=== PATIENT | male | born 1970 | race Caucasian/White ===

== ENCOUNTER 2016-03-05 11:43 | Emergency (ER) | payer OTHER ==
[~2016-03-05] VITALS: Ht 182.9 cm; Wt 129.3 kg
[2016-03-05 11:52] VITALS: BP 156/79; PULSE 90; RESP 16; TEMP 98; O2SAT 95
--- NOTE | 2016-03-05 11:56 | NUR ---
AMBULATED TO BED4
[2016-03-05] MEDS ORDERED: ALBUTEROL SULFATE 0.083% 2.5 MG/3 ML VIAL.NEB INH ONE (12:00)
--- NOTE | 2016-03-05 12:00 | NUR ---
ER at bedside examining patient.
[2016-03-05] MEDS ORDERED: methylPREDNISolone SOD SUCC/PF 62.5 MG/ML VIAL IVP ONE (12:15)
--- NOTE | 2016-03-05 12:30 | NUR ---
PT TOLERATED BREATHING WELL..PT MEDICATED FOR COUGH.PT REPORTS EASE IN RESP EFFORT.
[2016-03-05] MEDS ORDERED: PROMETHAZINE 6.25 MG/ CODEINE 10 MG/ 5 ML PO ONE (12:45)
[2016-03-05 13:06] LABS: BASOPHILS % (AUTO) 0.2 % (0.0-2.0); EOSINOPHILS # (AUTO) 0.3 K/uL (0.0-0.4); EOSINOPHILS % (AUTO) 2.7 % (0.0-4.0); HEMATOCRIT 49.1 % (36-54); HEMOGLOBIN 16.4 g/dL (14.0-18.0); LYMPHOCYTES # (AUTO) 1.3 K/uL (1.0-5.5); LYMPHOCYTES % (AUTO) 12.9 % (20.5-51.5); MEAN CORPUSCULAR HEMOGLOBIN 29 pg (27-31); MEAN CORPUSCULAR HGB CONC 33 % (32-36); MEAN CORPUSCULAR VOLUME 87 fL (79.0-98.0); MONOCYTES # (AUTO) 0.5 K/uL (0.0-1.0); MONOCYTES % (AUTO) 5.5 % (1.7-9.3); NEUTROPHILS # (AUTO) 7.8 K/uL (1.8-7.7); NEUTROPHILS % (AUTO) 78.7 % (40.0-70.0); PLATELET COUNT (AUTO) 214 K/uL (130-430); RED BLOOD CELL COUNT(AUTO) 5.65 MIL/uL (4.2-6.2); RED CELL DISTRIBUTION WIDTH 14.3 % (9.0-15.0); WHITE BLOOD COUNT (AUTO) 9.9 K/uL (4.8-10.8)
[2016-03-05 13:12] LABS: CALCIUM 8.6 mg/dL (8.4-11.0); CREATININE 0.85 mg/dL (0.55-1.30); POTASSIUM 3.7 mmol/L (3.5-5.1)
--- NOTE | 2016-03-05 13:35 | NUR ---
PT REPORTS URGE TO COUGH DIMINISHING.NO ACUTE RESP DISTRESS NOTED.
[2016-03-05 14:00] VITALS: BP 131/78; PULSE 78; RESP 14; TEMP 98.6; O2SAT 99
--- NOTE | 2016-03-05 14:00 | NUR ---
Patient given written and verbal discharge instructions and verbalizes understanding. ER MD dr. merino discussed with patient the results and treatment provided. Patient in stable condition. ID arm band removed. IV catheter removed intact and dressing applied, no active bleeding. Rx of promethazine with codeine, proair HFA, prednisone, doxycycline given. Patient educated on pain management and to follow up with PMD. Pain Scale 0/10 Opportunity for questions provided and answered.
== END 2016-03-05 14:00 | disposition home or self-care (01) ==
LOC: SED 11:43
DX: J40 Bronchitis, not specified as acute or chronic (principal); R03.0 Elevated blood-pressure reading, without diagnosis of hypertension; F43.10 Post-traumatic stress disorder, unspecified
CPT/HCPCS: 36415; 71010; 80048; 85025; 94640; 96374; 99285; J2930

== ENCOUNTER 2017-10-21 12:39 | Inpatient (IN) | payer OTHER ==
[~2017-10-21] VITALS: Ht 185.4 cm; Wt 156.5 kg
[2017-10-21] VITALS (9 sets, daily range): BP systolic 100–150
[2017-10-21] MEDS ORDERED: NACL 0.9% 1,000 ML IV ONE ×3 (13:05→15:45)
[2017-10-21] MEDS ORDERED: ONDANSETRON HCL 4 MG/2 ML VIAL IVP ONE ×2 (13:15→14:30)
[2017-10-21] MEDS ORDERED: KETOROLAC TROMETHAMINE 30 MG VIAL IVP ONE (13:15)
[2017-10-21] MEDS ORDERED: PANTOPRAZOLE SODIUM 40 MG/VIAL (PROTONIX) IVP ONE (13:30)
[2017-10-21 13:42] LABS: BASOPHILS # (AUTO) 0.1 K/uL (0.0-0.2); BASOPHILS % (AUTO) 0.9 % (0.0-2.0); EOSINOPHILS # (AUTO) 0.3 K/uL (0.0-0.4); EOSINOPHILS % (AUTO) 2.6 % (0.0-4.0); HEMATOCRIT 47.9 % (36-54); HEMOGLOBIN 16.5 g/dL (14.0-18.0); LYMPHOCYTES # (AUTO) 1.9 K/uL (1.0-5.5); LYMPHOCYTES % (AUTO) 15.4 % (20.5-51.5); MEAN CORPUSCULAR HEMOGLOBIN 31 pg (27-31); MEAN CORPUSCULAR HGB CONC 35 % (32-36); MEAN CORPUSCULAR VOLUME 91 fL (79.0-98.0); MONOCYTES # (AUTO) 0.7 K/uL (0.0-1.0); MONOCYTES % (AUTO) 5.4 % (1.7-9.3); NEUTROPHILS # (AUTO) 9.1 K/uL (1.8-7.7); NEUTROPHILS % (AUTO) 75.7 % (40.0-70.0); PLATELET COUNT (AUTO) 238 K/uL (130-430); RED BLOOD CELL COUNT(AUTO) 5.26 MIL/uL (4.2-6.2); RED CELL DISTRIBUTION WIDTH 14.9 % (9.0-15.0); WHITE BLOOD COUNT (AUTO) 12.1 K/uL (4.8-10.8)
[2017-10-21] MEDS ORDERED: VASOPRESSIN 200 UNITS in D5W 90 ML IV PRN (13:45)
[2017-10-21 13:50] LABS: CALCIUM 8.4 mg/dL (8.4-11.0); CREATININE 0.82 mg/dL (0.55-1.30); POTASSIUM 3.8 mmol/L (3.5-5.1)
[2017-10-21 13:54] LABS: ALBUMIN 3.7 g/dL (3.4-4.8)
[2017-10-21] MEDS ORDERED: TRAZ300T11 PO (14:22)
[2017-10-21] MEDS ORDERED: QUET400T12 PO (14:22)
[2017-10-21] MEDS ORDERED: PRAZ2CAP2 PO (14:22)
[2017-10-21] MEDS ORDERED: QUET50TA76 PO (14:22)
[2017-10-21] MEDS ORDERED: DIVA500T7 PO (14:22)
[2017-10-21] MEDS ORDERED: SERT25TA77 PO (14:22)
[2017-10-21] MEDS ORDERED: PANT20TA2 PO (14:22)
[2017-10-21] MEDS ORDERED: HYDR-2489 PO (14:22)
[2017-10-21 15:05] LABS: HEMATOCRIT 41.6 % (36-54)
[2017-10-21 15:08] LABS: HEMOGLOBIN 14.1 g/dL (14.0-18.0)
[2017-10-21 15:27] LABS: PROTHROMBIN TIME 9.9 SECS (9.5-12.5)
[2017-10-21 16:08] LABS: BARBITURATE, URINE NEGATIVE (NEG <=200); BENZODIAZEPINE, URINE NEGATIVE (NEG <=150); CANNABINOID, URINE NEGATIVE (NEG <=50); COCAINE, URINE NEGATIVE (NEG <=150); METHAMPHETAMINES SCREEN,URINE NEGATIVE (NEG <=500); OPIATE, URINE NEGATIVE (NEG <=100); PHENCYCLIDINE SCREEN,URINE NEGATIVE (NEG <=25); UR TRICYCLIC ANTIDEPRESSANTS NEGATIVE (NEG <=300); URINE AMPHETAMINE NEGATIVE (NEG <=500); URINE METHADONE NEGATIVE (NEG <=200); URINE OXYCODONE SCREEN NEGATIVE (NEG <=100); URINE PROPOXYPHENE SCREEN NEGATIVE (NEG <=300)
[2017-10-21] MEDS: MORPHINE 2 MG/ML INJ. SYRINGE IVP PRN ×2 (17:17→21:23)
[2017-10-21] MEDS: NACL 0.9% 1,000 ML IV SCH (17:29)
[2017-10-21] MEDS ORDERED: PANTOPRAZOLE SODIUM 40 MG/VIAL (PROTONIX) IVP SCH (21:00)
[2017-10-21] MEDS ORDERED: cefTRIAXone 1 GM IVPB PREMIX 50 ML IV ONE ×2 (21:00→22:40)
[2017-10-21 21:08] LABS: BASOPHILS # (AUTO) 0.1 K/uL (0.0-0.2); BASOPHILS % (AUTO) 0.7 % (0.0-2.0); EOSINOPHILS # (AUTO) 0.2 K/uL (0.0-0.4); EOSINOPHILS % (AUTO) 1.8 % (0.0-4.0); HEMATOCRIT 33.6 % (36-54); HEMOGLOBIN 11.4 g/dL (14.0-18.0); LYMPHOCYTES # (AUTO) 2.4 K/uL (1.0-5.5); LYMPHOCYTES % (AUTO) 25.7 % (20.5-51.5); MEAN CORPUSCULAR HEMOGLOBIN 31 pg (27-31); MEAN CORPUSCULAR HGB CONC 34 % (32-36); MEAN CORPUSCULAR VOLUME 91 fL (79.0-98.0); MONOCYTES # (AUTO) 0.6 K/uL (0.0-1.0); NEUTROPHILS % (AUTO) 65.8 % (40.0-70.0); PLATELET COUNT (AUTO) 187 K/uL (130-430); RED BLOOD CELL COUNT(AUTO) 3.69 MIL/uL (4.2-6.2); WHITE BLOOD COUNT (AUTO) 9.3 K/uL (4.8-10.8)
[2017-10-22] VITALS (24 sets, daily range): BP systolic 96–169
[2017-10-22] MEDS ORDERED: ZOLPIDEM TARTRATE 5 MG TABLET PO SCH (00:15)
[2017-10-22] MEDS: ONDANSETRON HCL 4 MG/2 ML VIAL IVP PRN (03:09)
[2017-10-22] MEDS ORDERED: NACL 0.9% 1,000 ML IV ONE (04:52)
[2017-10-22] MEDS ORDERED: OCTREOTIDE ACETATE 1,250 MCG in NS 250 ML IV SCH ×2 (05:15→09:30)
[2017-10-22] MEDS ORDERED: OCTREOTIDE ACETATE 50 MCG/ML AMP IV ONE ×2 (05:15→10:15)
[2017-10-22] MEDS ORDERED: PANTOPRAZOLE SODIUM 80 MG in NS 100 ML IV ONE (05:15)
[2017-10-22] MEDS ORDERED: PANTOPRAZOLE SODIUM 40 MG/VIAL (PROTONIX) ONE ×2 (06:34)
[2017-10-22 06:37] LABS: BASOPHILS # (AUTO) 0.1 K/uL (0.0-0.2); EOSINOPHILS # (AUTO) 0.2 K/uL (0.0-0.4); EOSINOPHILS % (AUTO) 2.8 % (0.0-4.0); HEMATOCRIT 27.8 % (36-54); HEMOGLOBIN 9.2 g/dL (14.0-18.0); LYMPHOCYTES # (AUTO) 1.8 K/uL (1.0-5.5); LYMPHOCYTES % (AUTO) 22.5 % (20.5-51.5); MEAN CORPUSCULAR HEMOGLOBIN 31 pg (27-31); MEAN CORPUSCULAR HGB CONC 33 % (32-36); MEAN CORPUSCULAR VOLUME 92 fL (79.0-98.0); MONOCYTES # (AUTO) 0.5 K/uL (0.0-1.0); MONOCYTES % (AUTO) 5.8 % (1.7-9.3); NEUTROPHILS # (AUTO) 5.2 K/uL (1.8-7.7); NEUTROPHILS % (AUTO) 67.9 % (40.0-70.0); PLATELET COUNT (AUTO) 187 K/uL (130-430); RED BLOOD CELL COUNT(AUTO) 3.01 MIL/uL (4.2-6.2); RED CELL DISTRIBUTION WIDTH 15.4 % (9.0-15.0); WHITE BLOOD COUNT (AUTO) 7.8 K/uL (4.8-10.8)
[2017-10-22] MEDS: NACL 0.9% 1,000 ML IV SCH ×2 (06:48→16:14)
[2017-10-22] MEDS: PANTOPRAZOLE SODIUM 40 MG in NS 50 ML IV SCH ×4 (06:49→22:38)
[2017-10-22 07:00] LABS: INR 1.1 (0.80-1.20)
[2017-10-22 07:24] LABS: ALBUMIN 2.3 g/dL (3.4-4.8); CALCIUM 7.3 mg/dL (8.4-11.0); CREATININE 1.03 mg/dL (0.55-1.30); POTASSIUM 3.9 mmol/L (3.5-5.1); THYROID STIMULATING HORMONE 3.35 uIu/mL (0.34-4.82); TOTAL BILIRUBIN 0.6 mg/dL (0.0-1.0)
[2017-10-22] MEDS: MEPERIDINE HCL/PF 100 MG/ML AMP ONE ×2 (07:35→13:36)
[2017-10-22] MEDS ORDERED: SIMETHICONE 40 MG/0.6 ML ML ONE (07:35)
[2017-10-22 11:26] LABS: BASOPHILS # (AUTO) 0.1 K/uL (0.0-0.2); BASOPHILS % (AUTO) 0.8 % (0.0-2.0); EOSINOPHILS # (AUTO) 0.1 K/uL (0.0-0.4); EOSINOPHILS % (AUTO) 1.8 % (0.0-4.0); HEMATOCRIT 26.5 % (36-54); HEMOGLOBIN 8.5 g/dL (14.0-18.0); LYMPHOCYTES # (AUTO) 1.5 K/uL (1.0-5.5); LYMPHOCYTES % (AUTO) 20.5 % (20.5-51.5); MEAN CORPUSCULAR HEMOGLOBIN 29 pg (27-31); MEAN CORPUSCULAR HGB CONC 32 % (32-36); MEAN CORPUSCULAR VOLUME 91 fL (79.0-98.0); MONOCYTES # (AUTO) 0.5 K/uL (0.0-1.0); MONOCYTES % (AUTO) 6.3 % (1.7-9.3); NEUTROPHILS # (AUTO) 5.1 K/uL (1.8-7.7); NEUTROPHILS % (AUTO) 70.6 % (40.0-70.0); PLATELET COUNT (AUTO) 173 K/uL (130-430); RED CELL DISTRIBUTION WIDTH 15.2 % (9.0-15.0); WHITE BLOOD COUNT (AUTO) 7.3 K/uL (4.8-10.8)
[2017-10-22] MEDS: BANANA BAG 1 EA, FOLIC ACID 1 MG, THIAMINE HCL 100 MG, MAGNESIUM SULFATE 1 GM, MVI 10 M... IV SCH ×5 (12:00)
[2017-10-22] MEDS: MIDAZOLAM HCL 5 MG/5 ML VIAL ONE ×4 (13:36→13:56)
[2017-10-22] MEDS ORDERED: SUCRALFATE 1 GM/10 ML UDC GT ONE (14:00)
[2017-10-22] MEDS: SUCRALFATE 1 GM/10 ML UDC GT SCH (16:14)
[2017-10-22] MEDS: SERTRALINE HCL 50 MG TABLET PO SCH ×2 (21:15→22:27)
[2017-10-22] MEDS: QUEtiapine FUMARATE 100 MG TABLET PO SCH (22:27)
[2017-10-22] MEDS ORDERED: DIVALPROEX SODIUM 500 MG TABLET( DEPAKOTE) PO ONE (22:28)
[2017-10-22] MEDS: DIVALPROEX SODIUM 500 MG TABLET( DEPAKOTE) PO SCH (22:28)
[2017-10-22] MEDS: traZODone HCL 50 MG TABLET (DESYREL) PO SCH (22:28)
[2017-10-22] MEDS ORDERED: traZODone HCL 50 MG TABLET (DESYREL) ONE (22:30)
[2017-10-22] MEDS ORDERED: QUEtiapine FUMARATE 100 MG TABLET ONE (22:30)
[2017-10-22] MEDS ORDERED: SERTRALINE HCL 50 MG TABLET ONE (22:31)
[2017-10-23] VITALS (21 sets, daily range): BP systolic 104–180
[2017-10-23] MEDS: NACL 0.9% 1,000 ML IV SCH ×2 (03:25→20:08)
[2017-10-23] MEDS: PANTOPRAZOLE SODIUM 40 MG in NS 50 ML IV SCH ×2 (03:25→06:50)
[2017-10-23] MEDS: SUCRALFATE 1 GM/10 ML UDC GT SCH ×2 (06:50→17:18)
[2017-10-23 06:53] LABS: CALCIUM 7.3 mg/dL (8.4-11.0); CREATININE 1.13 mg/dL (0.55-1.30); POTASSIUM 3.9 mmol/L (3.5-5.1)
[2017-10-23 07:25] LABS: BASOPHILS % (AUTO) 0.6 % (0.0-2.0); EOSINOPHILS # (AUTO) 0.3 K/uL (0.0-0.4); EOSINOPHILS % (AUTO) 4.3 % (0.0-4.0); LYMPHOCYTES % (AUTO) 28.6 % (20.5-51.5); MEAN CORPUSCULAR HEMOGLOBIN 31 pg (27-31); MEAN CORPUSCULAR HGB CONC 33 % (32-36); MONOCYTES # (AUTO) 0.5 K/uL (0.0-1.0); MONOCYTES % (AUTO) 7.8 % (1.7-9.3); NEUTROPHILS # (AUTO) 4.1 K/uL (1.8-7.7); NEUTROPHILS % (AUTO) 58.7 % (40.0-70.0); PLATELET COUNT (AUTO) 153 K/uL (130-430); RED BLOOD CELL COUNT(AUTO) 2.25 MIL/uL (4.2-6.2); RED CELL DISTRIBUTION WIDTH 15.5 % (9.0-15.0); WHITE BLOOD COUNT (AUTO) 6.9 K/uL (4.8-10.8)
[2017-10-23 07:56] LABS: MEAN CORPUSCULAR VOLUME 92 fL (79.0-98.0)
[2017-10-23] MEDS: DIVALPROEX SODIUM 500 MG TABLET( DEPAKOTE) PO SCH ×2 (09:01→21:00)
[2017-10-23] MEDS: SERTRALINE HCL 50 MG TABLET PO SCH ×2 (09:01→21:27)
[2017-10-23] MEDS: ACETAMINOPHEN 500 MG TABLET PO PRN (12:01)
[2017-10-23] MEDS: MORPHINE 2 MG/ML INJ. SYRINGE IVP PRN (13:09)
[2017-10-23] MEDS: ONDANSETRON HCL 4 MG/2 ML VIAL IVP PRN (13:10)
[2017-10-23] MEDS: BANANA BAG 1 EA, FOLIC ACID 1 MG, THIAMINE HCL 100 MG, MAGNESIUM SULFATE 1 GM, MVI 10 M... IV SCH ×5 (14:13)
[2017-10-23 14:24] LABS: BASOPHILS % (AUTO) 0.6 % (0.0-2.0); EOSINOPHILS # (AUTO) 0.3 K/uL (0.0-0.4); EOSINOPHILS % (AUTO) 4.2 % (0.0-4.0); LYMPHOCYTES % (AUTO) 26.6 % (20.5-51.5); MEAN CORPUSCULAR HEMOGLOBIN 30 pg (27-31); MEAN CORPUSCULAR HGB CONC 32 % (32-36); MEAN CORPUSCULAR VOLUME 93 fL (79.0-98.0); MONOCYTES # (AUTO) 0.5 K/uL (0.0-1.0); MONOCYTES % (AUTO) 7.4 % (1.7-9.3); NEUTROPHILS # (AUTO) 4.6 K/uL (1.8-7.7); NEUTROPHILS % (AUTO) 61.2 % (40.0-70.0); PLATELET COUNT (AUTO) 158 K/uL (130-430); RED BLOOD CELL COUNT(AUTO) 2.34 MIL/uL (4.2-6.2); RED CELL DISTRIBUTION WIDTH 15.2 % (9.0-15.0); WHITE BLOOD COUNT (AUTO) 7.4 K/uL (4.8-10.8)
[2017-10-23 14:32] LABS: HEMATOCRIT 21.7 % (36-54)
[2017-10-23 18:53] LABS: BASOPHILS # (AUTO) 0.1 K/uL (0.0-0.2); EOSINOPHILS # (AUTO) 0.4 K/uL (0.0-0.4); EOSINOPHILS % (AUTO) 5.6 % (0.0-4.0); HEMATOCRIT 24.2 % (36-54); HEMOGLOBIN 7.7 g/dL (14.0-18.0); LYMPHOCYTES # (AUTO) 2.1 K/uL (1.0-5.5); LYMPHOCYTES % (AUTO) 27.7 % (20.5-51.5); MEAN CORPUSCULAR HEMOGLOBIN 29 pg (27-31); MEAN CORPUSCULAR HGB CONC 32 % (32-36); MEAN CORPUSCULAR VOLUME 91 fL (79.0-98.0); MONOCYTES # (AUTO) 0.4 K/uL (0.0-1.0); MONOCYTES % (AUTO) 5.1 % (1.7-9.3); NEUTROPHILS # (AUTO) 4.7 K/uL (1.8-7.7); NEUTROPHILS % (AUTO) 60.6 % (40.0-70.0); PLATELET COUNT (AUTO) 154 K/uL (130-430); RED BLOOD CELL COUNT(AUTO) 2.66 MIL/uL (4.2-6.2); RED CELL DISTRIBUTION WIDTH 16.1 % (9.0-15.0); WHITE BLOOD COUNT (AUTO) 7.7 K/uL (4.8-10.8)
[2017-10-23] MEDS ORDERED: traZODone HCL 50 MG TABLET (DESYREL) ONE (21:25)
[2017-10-23] MEDS: traZODone HCL 50 MG TABLET (DESYREL) PO SCH (21:26)
[2017-10-23] MEDS: PANTOPRAZOLE SODIUM 40 MG TAB PO SCH (21:27)
[2017-10-23] MEDS: QUEtiapine FUMARATE 100 MG TABLET PO SCH (21:27)
[2017-10-24] VITALS (14 sets, daily range): BP systolic 118–149
[2017-10-24] MEDS ORDERED: SUCRALFATE 1 GM TABLET ONE (06:16)
[2017-10-24 06:23] LABS: BASOPHILS # (AUTO) 0.1 K/uL (0.0-0.2); BASOPHILS % (AUTO) 1.2 % (0.0-2.0); EOSINOPHILS # (AUTO) 0.3 K/uL (0.0-0.4); EOSINOPHILS % (AUTO) 4.3 % (0.0-4.0); HEMATOCRIT 25.1 % (36-54); HEMOGLOBIN 8.5 g/dL (14.0-18.0); LYMPHOCYTES # (AUTO) 1.6 K/uL (1.0-5.5); LYMPHOCYTES % (AUTO) 20.9 % (20.5-51.5); MEAN CORPUSCULAR HEMOGLOBIN 30 pg (27-31); MEAN CORPUSCULAR HGB CONC 34 % (32-36); MEAN CORPUSCULAR VOLUME 90 fL (79.0-98.0); MONOCYTES # (AUTO) 0.5 K/uL (0.0-1.0); MONOCYTES % (AUTO) 7.2 % (1.7-9.3); NEUTROPHILS # (AUTO) 4.9 K/uL (1.8-7.7); NEUTROPHILS % (AUTO) 66.4 % (40.0-70.0); PLATELET COUNT (AUTO) 140 K/uL (130-430); RED BLOOD CELL COUNT(AUTO) 2.79 MIL/uL (4.2-6.2); RED CELL DISTRIBUTION WIDTH 15.5 % (9.0-15.0); WHITE BLOOD COUNT (AUTO) 7.4 K/uL (4.8-10.8)
[2017-10-24 06:38] LABS: CALCIUM 7.2 mg/dL (8.4-11.0); CREATININE 0.91 mg/dL (0.55-1.30); POTASSIUM 3.4 mmol/L (3.5-5.1)
[2017-10-24] MEDS: SUCRALFATE 1 GM/10 ML UDC GT SCH ×2 (07:00→17:05)
[2017-10-24] MEDS ORDERED: IPRATROPIUM BROM 0.5 MG/2.5 ML VIAL.NEB (ATROVENT) INH PRN (09:00)
[2017-10-24] MEDS ORDERED: ALBUTEROL SULFATE 0.083% 2.5 MG/3 ML VIAL.NEB INH PRN (09:00)
[2017-10-24] MEDS: DIVALPROEX SODIUM 500 MG TABLET( DEPAKOTE) PO SCH ×2 (09:59→21:39)
[2017-10-24] MEDS: PANTOPRAZOLE SODIUM 40 MG TAB PO SCH ×2 (09:59→21:40)
[2017-10-24] MEDS: SERTRALINE HCL 50 MG TABLET PO SCH ×2 (09:59→21:42)
[2017-10-24 10:10] LABS: HEPATITIS A AB, IgM Negative (Negative); HEPATITIS B CORE AB, IgM Negative (Negative); HEPATITIS B SURFACE AG Negative (Negative)
[2017-10-24] MEDS: IPRATROPIUM BROM 0.5 MG/2.5 ML VIAL.NEB (ATROVENT) INH SCH ×4 (11:31→23:00)
[2017-10-24] MEDS: ALBUTEROL SULFATE 0.083% 2.5 MG/3 ML VIAL.NEB INH SCH ×4 (11:32→23:00)
[2017-10-24] MEDS: NACL 0.9% 1,000 ML IV SCH ×3 (11:47→23:30)
[2017-10-24] MEDS: BANANA BAG 1 EA, FOLIC ACID 1 MG, THIAMINE HCL 100 MG, MAGNESIUM SULFATE 1 GM, MVI 10 M... IV SCH ×5 (11:49)
[2017-10-24] MEDS: ACETAMINOPHEN 500 MG TABLET PO PRN (17:11)
[2017-10-24] MEDS: traZODone HCL 50 MG TABLET (DESYREL) PO SCH (21:40)
[2017-10-24] MEDS: QUEtiapine FUMARATE 100 MG TABLET PO SCH (21:41)
[2017-10-25 00:27] VITALS: BP_SYST 144
[2017-10-25] MEDS: ACETAMINOPHEN 500 MG TABLET PO PRN (03:05)
[2017-10-25] MEDS: MORPHINE 2 MG/ML INJ. SYRINGE IVP PRN (03:11)
[2017-10-25] MEDS: SUCRALFATE 1 GM/10 ML UDC GT SCH (06:05)
[2017-10-25] MEDS: IPRATROPIUM BROM 0.5 MG/2.5 ML VIAL.NEB (ATROVENT) INH SCH ×2 (07:00→11:11)
[2017-10-25] MEDS: ALBUTEROL SULFATE 0.083% 2.5 MG/3 ML VIAL.NEB INH SCH ×2 (07:00→11:11)
[2017-10-25 08:00] VITALS: BP_SYST 154
[2017-10-25] MEDS: PANTOPRAZOLE SODIUM 40 MG TAB PO SCH (08:55)
[2017-10-25] MEDS: SERTRALINE HCL 50 MG TABLET PO SCH ×2 (08:55→09:00)
[2017-10-25] MEDS: DIVALPROEX SODIUM 500 MG TABLET( DEPAKOTE) PO SCH ×2 (08:56→09:00)
[2017-10-25 09:35] LABS: BASOPHILS % (AUTO) 0.6 % (0.0-2.0); EOSINOPHILS # (AUTO) 0.3 K/uL (0.0-0.4); EOSINOPHILS % (AUTO) 5.7 % (0.0-4.0); HEMATOCRIT 25.8 % (36-54); HEMOGLOBIN 8.8 g/dL (14.0-18.0); LYMPHOCYTES # (AUTO) 1.3 K/uL (1.0-5.5); LYMPHOCYTES % (AUTO) 25.3 % (20.5-51.5); MEAN CORPUSCULAR HEMOGLOBIN 31 pg (27-31); MEAN CORPUSCULAR HGB CONC 34 % (32-36); MEAN CORPUSCULAR VOLUME 91 fL (79.0-98.0); MONOCYTES # (AUTO) 0.4 K/uL (0.0-1.0); MONOCYTES % (AUTO) 8.6 % (1.7-9.3); NEUTROPHILS % (AUTO) 59.8 % (40.0-70.0); PLATELET COUNT (AUTO) 167 K/uL (130-430); RED BLOOD CELL COUNT(AUTO) 2.84 MIL/uL (4.2-6.2); RED CELL DISTRIBUTION WIDTH 15.9 % (9.0-15.0)
[2017-10-25] MEDS: BANANA BAG 1 EA, FOLIC ACID 1 MG, THIAMINE HCL 100 MG, MAGNESIUM SULFATE 1 GM, MVI 10 M... IV SCH ×5 (10:59)
[2017-10-25 11:02] VITALS: BP_SYST 128
[2017-10-25] MEDS ORDERED: SUCR1TAB78 PO (12:43)
[2017-10-25] MEDS ORDERED: PRO40 PO (12:44)
[2017-10-25 12:58] VITALS: BP_SYST 128
== END 2017-10-25 14:22 | disposition home or self-care (01) | DRG 381 ==
LOC: SED 12:39 → SIC 15:23 → SMU 10-24 11:35
PROVIDERS: ADMIT Internal Medicine Hospice and Palliative Medicine; ATTEND Internal Medicine Hospice and Palliative Medicine
PROC: 0DB78ZX Excision of Stomach, Pylorus, Via Natural or Artificial Opening Endoscopic, Diagnostic (ICD-10-PCS; 2017-10-22)
PROC: 0DB68ZX Excision of Stomach, Via Natural or Artificial Opening Endoscopic, Diagnostic (ICD-10-PCS; principal; 2017-10-22 13:30)
PROC: 30233N1 Transfusion of Nonautologous Red Blood Cells into Peripheral Vein, Percutaneous Approach (ICD-10-PCS; 2017-10-23)
DX: K22.11 Ulcer of esophagus with bleeding (principal); Z68.42 Body mass index [BMI] 45.0-49.9, adult; F43.10 Post-traumatic stress disorder, unspecified; E03.9 Hypothyroidism, unspecified; G47.33 Obstructive sleep apnea (adult) (pediatric); E66.9 Obesity, unspecified; K21.0 Gastro-esophageal reflux disease with esophagitis; F10.20 Alcohol dependence, uncomplicated; F32.9 Major depressive disorder, single episode, unspecified; G89.29 Other chronic pain; K29.71 Gastritis, unspecified, with bleeding; K44.9 Diaphragmatic hernia without obstruction or gangrene; R00.0 Tachycardia, unspecified; D64.9 Anemia, unspecified; Z71.41 Alcohol abuse counseling and surveillance of alcoholic
CPT/HCPCS: 36415; 36600; 43239; 80048; 80053; 80074; 80307; 82803-TC; 83051; 83690-TC; 84443-TC; 85014-TC; 85025; 85610-TC; 85730-TC; 86886; 86900; 86901; 86920; 87081; 93005; 94640; 96361; 96374; 96375; 96376; 99291; C9113; J0696; J1885; J2175; J2250; J2270; J2354; J2405; J3411; J3475; J3490; J7030; J7050; J7613; P9021

== ENCOUNTER 2017-11-22 18:34 | Emergency (ER) | payer OTHER ==
[~2017-11-22] VITALS: Ht 185.4 cm; Wt 106.6 kg
[~2017-11-22 18:34] MED LIST: DIVA500T7 PO; HYDR-2489 PO; PANT20TA2 PO; PRAZ2CAP2 PO; PRO40 PO; QUET400T12 PO; QUET50TA76 PO; SERT25TA77 PO; SUCR1TAB78 PO; TRAZ300T11 PO
[2017-11-22 18:43] VITALS: BP_SYST 153
[2017-11-22] MEDS ORDERED: MELA3TAB PO (18:53)
[2017-11-22 19:51] LABS: BASOPHILS % (AUTO) 0.6 % (0.0-2.0); EOSINOPHILS # (AUTO) 0.4 K/uL (0.0-0.4); EOSINOPHILS % (AUTO) 6.2 % (0.0-4.0); HEMOGLOBIN 9.4 g/dL (14.0-18.0); LYMPHOCYTES # (AUTO) 1.5 K/uL (1.0-5.5); LYMPHOCYTES % (AUTO) 25.7 % (20.5-51.5); MEAN CORPUSCULAR HEMOGLOBIN 26 pg (27-31); MEAN CORPUSCULAR HGB CONC 31 % (32-36); MEAN CORPUSCULAR VOLUME 82 fL (79.0-98.0); MONOCYTES # (AUTO) 0.5 K/uL (0.0-1.0); NEUTROPHILS # (AUTO) 3.6 K/uL (1.8-7.7); NEUTROPHILS % (AUTO) 58.5 % (40.0-70.0); PLATELET COUNT (AUTO) 294 K/uL (130-430); RED BLOOD CELL COUNT(AUTO) 3.65 MIL/uL (4.2-6.2); RED CELL DISTRIBUTION WIDTH 19.8 % (9.0-15.0)
[2017-11-22 20:02] LABS: CALCIUM 8.5 mg/dL (8.4-11.0); CREATININE 0.89 mg/dL (0.55-1.30); POTASSIUM 3.6 mmol/L (3.5-5.1)
[2017-11-22 20:07] LABS: ALBUMIN 3.5 g/dL (3.4-4.8); TOTAL BILIRUBIN 0.4 mg/dL (0.0-1.0)
[2017-11-22 20:30] LABS: CKMB RELATIVE INDEX 0.8 (0.0-2.9); CREATINE KINASE MB 2.9 ng/mL (0-3.6)
[2017-11-22 20:55] LABS: BARBITURATE, URINE NEGATIVE (NEG <=200); BENZODIAZEPINE, URINE NEGATIVE (NEG <=150); CANNABINOID, URINE NEGATIVE (NEG <=50); COCAINE, URINE NEGATIVE (NEG <=150); METHAMPHETAMINES SCREEN,URINE NEGATIVE (NEG <=500); OPIATE, URINE NEGATIVE (NEG <=100); PHENCYCLIDINE SCREEN,URINE NEGATIVE (NEG <=25); UR TRICYCLIC ANTIDEPRESSANTS NEGATIVE (NEG <=300); URINE AMPHETAMINE NEGATIVE (NEG <=500); URINE METHADONE NEGATIVE (NEG <=200); URINE OXYCODONE SCREEN NEGATIVE (NEG <=100); URINE PROPOXYPHENE SCREEN NEGATIVE (NEG <=300)
[2017-11-22] MEDS ORDERED: LORazepam 2 MG/ML VIAL (FOR ER USE) IVP ONE (21:00)
[2017-11-22] MEDS ORDERED: NACL 0.9% 1,000 ML IV ONE (21:00)
[2017-11-22] MEDS ORDERED: IOHEXOL 350 mgI/mL, 150 ML INFUS..BTL IV ONE (21:16)
[2017-11-22 22:27] VITALS: BP_SYST 151
[2017-11-22 22:49] LABS: FREE T4 (FREE THYROXINE) 0.6 ng/dl (0.8-1.5); THYROID STIMULATING HORMONE 5.2 uIu/mL (0.36-3.74)
== END 2017-11-22 22:27 | disposition home or self-care (01) ==
LOC: SED 18:34
DX: F41.9 Anxiety disorder, unspecified (principal); D64.9 Anemia, unspecified; R74.0 Nonspecific elevation of levels of transaminase and lactic acid dehydrogenase [LDH]; R79.89 Other specified abnormal findings of blood chemistry; K21.9 Gastro-esophageal reflux disease without esophagitis; Z79.899 Other long term (current) drug therapy
CPT/HCPCS: 36415; 71045; 71275; 80053; 80307; 82550; 82553; 83880; 84439; 84443; 84484; 85025; 85379; 93005; 96361; 96374; 99285; J2060; J7030; Q9967

== ENCOUNTER 2017-12-04 21:44 | Emergency (ER) | payer OTHER ==
[~2017-12-04] VITALS: Ht 185.4 cm; Wt 150.6 kg
[~2017-12-04 21:44] MED LIST changes: +MELA3TAB PO; -PANT20TA2 PO
[2017-12-04 21:52] VITALS: BP_SYST 140
--- NOTE | 2017-12-04 22:48 | NUR ---
Patient to ER bed h1 to gown for evaluation. Side rails up.
--- NOTE | 2017-12-04 22:50 | NUR ---
Pt AAOx4 ambulated into ED c/o 11/05 back pain r/t fall a few weeks ago. Pt states he was standing and fell asleep. Per pt, "I'm at the beginning stages of narcolepsy." Skin pink dry and warm, breathing even and unlabored. No other injuries/complaints per pt/noted. Will continue to monitor.
--- NOTE | 2017-12-04 23:02 | NUR ---
ER Dr. Padgett at bedside examining patient.
--- NOTE | 2017-12-04 23:03 | NUR ---
Brent roland in ED - 12/04/17 at 2303 by [email or web address] BETY Padgett at bedside examining patient.
[2017-12-04] MEDS ORDERED: MORPHINE 4 MG/ML INJ. SYRINGE IM ONE (23:15)
--- NOTE | 2017-12-04 23:21 | NUR ---
Morphine 4mg IM to L deltoid administered. Pt tolerated well. No adverse reactions noted.
--- NOTE | 2017-12-04 23:27 | NUR ---
Pt taken to radiology via wheelchair in stable condition
--- NOTE | 2017-12-04 23:38 | NUR ---
Pt returned from radiology via wheelchair in stable condition
[2017-12-05 00:52] VITALS: BP_SYST 143
--- NOTE | 2017-12-05 00:52 | NUR ---
Patient given written and verbal discharge instructions and verbalizes understanding. ER MD discussed with patient the results and treatment provided. Patient in stable condition. ID arm band removed. Rx of [place] 5/325 and Colace given. Patient educated on pain management and to follow up with PMD. Pain Scale 2/10 tolerable to patient. Opportunity for questions provided and answered. Medication side effect fact sheet provided.
== END 2017-12-05 00:52 | disposition home or self-care (01) ==
LOC: SED 21:44
DX: M54.5 Low back pain (principal); R03.0 Elevated blood-pressure reading, without diagnosis of hypertension; K21.9 Gastro-esophageal reflux disease without esophagitis; F41.9 Anxiety disorder, unspecified; F32.9 Major depressive disorder, single episode, unspecified; F43.10 Post-traumatic stress disorder, unspecified; Z79.899 Other long term (current) drug therapy; W19.XXXA Unspecified fall, initial encounter; Y93.89 Activity, other specified; Y92.89 Other specified places as the place of occurrence of the external cause; Y99.8 Other external cause status
CPT/HCPCS: 72131; 96372; 99284; J2270

== ENCOUNTER 2019-05-07 16:54 | Inpatient (IN) | payer OTHER, MEDICAID ==
[~2019-05-07] VITALS: Ht 185.4 cm; Wt 139.0 kg
[~2019-05-07 16:54] MED LIST changes: +DIVA-50 PO; -DIVA500T7 PO; -HYDR-2489 PO; +HYDR-4274 PO; -MELA3TAB PO; +MELA3TAB64 PO; -QUET50TA76 PO; +QUET50TA79 PO
[2019-05-07 17:12] VITALS: BP_SYST 145
[2019-05-07] MEDS ORDERED: fentaNYL CITRATE/PF 100 MCG/2 ML AMP IVP ONE (17:30)
[2019-05-07] MEDS ORDERED: METOPROLOL TARTRATE 5 MG/5 ML VIAL IVP ONE (17:30)
[2019-05-07] MEDS ORDERED: NACL 0.9% 1,000 ML IV ONE (17:30)
[2019-05-07] MEDS ORDERED: MORPHINE 4 MG/ML INJ. SYRINGE IVP ONE ×2 (18:00→19:30)
[2019-05-07 18:03] LABS: ANION GAP 8 (5-15); CALCIUM 8.2 mg/dL (8.4-11.0); CHLORIDE 104 mmol/L (98-107); CREATININE 0.96 mg/dL (0.55-1.30); GLUCOSE 126 mg/dL (70-99); SODIUM SERUM 139 mmol/L (136-145); UREA NITROGEN, BLOOD 31 mg/dL (8-21)
[2019-05-07 18:05] LABS: GFR AFRICAN AMERICAN 108 mL/min (>90)
[2019-05-07 18:14] LABS: ALANINE AMINOTRANSFERASE 41 U/L (12-78); ALBUMIN 3.5 g/dL (3.4-4.8); ASPARTATE AMINOTRANSFERASE 22 U/L (10-37); TOTAL BILIRUBIN 0.3 mg/dL (0.0-1.0)
[2019-05-07 18:17] LABS: BASOPHILS % (AUTO) 0.1 % (0.0-2.0); EOSINOPHILS % (AUTO) 0.1 % (0.0-4.0); HEMATOCRIT 43.2 % (36-54); HEMOGLOBIN 14.4 g/dL (14.0-18.0); LYMPHOCYTES % (AUTO) 12.7 % (20.5-51.5); MEAN CORPUSCULAR HEMOGLOBIN 32 pg (27-31); MEAN CORPUSCULAR HGB CONC 33 % (32-36); MEAN CORPUSCULAR VOLUME 96 fL (79.0-98.0); MONOCYTES # (AUTO) 0.7 K/uL (0.0-1.0); MONOCYTES % (AUTO) 8.5 % (1.7-9.3); NEUTROPHILS # (AUTO) 6.3 K/uL (1.8-7.7); NEUTROPHILS % (AUTO) 78.6 % (40.0-70.0); PLATELET COUNT (AUTO) 163 K/uL (130-430); RED BLOOD CELL COUNT(AUTO) 4.51 MIL/uL (4.2-6.2); RED CELL DISTRIBUTION WIDTH 13.9 % (9.0-15.0)
[2019-05-07] MEDS ORDERED: ROSU20TA2 PO (19:10)
[2019-05-07] MEDS ORDERED: IBUP-1970 PO (19:10)
[2019-05-07] MEDS ORDERED: TRAM-350 PO (19:10)
[2019-05-07 22:25] VITALS: BP_SYST 138
[2019-05-07] MEDS ORDERED: MORPHINE 2 MG/ML INJ. SYRINGE IVP PRN ×2 (22:45→23:45)
[2019-05-07] MEDS ORDERED: MORPHINE 2 MG/ML INJ. SYRINGE ONE (23:23)
[2019-05-07] MEDS ORDERED: ALBUTEROL SULFATE 0.083% 2.5 MG/3 ML VIAL.NEB INH PRN (23:45)
[2019-05-07] MEDS ORDERED: ACETAMINOPHEN 325 MG TABLET PO PRN (23:45)
[2019-05-07] MEDS ORDERED: LORazepam 2 MG/ML VIAL IVP PRN (23:45)
[2019-05-07] MEDS ORDERED: ONDANSETRON HCL 4 MG/2 ML VIAL IVP PRN (23:45)
[2019-05-08] VITALS (7 sets, daily range): BP systolic 117–155
[2019-05-08] MEDS: NACL 0.9% 1,000 ML IV SCH ×3 (00:13→23:41)
[2019-05-08] MEDS: MORPHINE 4 MG/ML INJ. SYRINGE IVP PRN ×3 (03:56→12:54)
[2019-05-08] MEDS ORDERED: KETOROLAC TROMETHAMINE 30 MG VIAL IM PRN (06:00)
[2019-05-08] MEDS ORDERED: DEXAMETHASONE SOD PHOSPHATE 4 MG/ML VIAL INH ONE (06:15)
[2019-05-08 06:26] LABS: BASOPHILS % (AUTO) 0.3 % (0.0-2.0); EOSINOPHILS # (AUTO) 0.1 K/uL (0.0-0.4); EOSINOPHILS % (AUTO) 0.7 % (0.0-4.0); HEMATOCRIT 40.6 % (36-54); HEMOGLOBIN 13.3 g/dL (14.0-18.0); MEAN CORPUSCULAR HEMOGLOBIN 32 pg (27-31); MEAN CORPUSCULAR HGB CONC 33 % (32-36); MEAN CORPUSCULAR VOLUME 96 fL (79.0-98.0); MONOCYTES # (AUTO) 0.7 K/uL (0.0-1.0); MONOCYTES % (AUTO) 10.3 % (1.7-9.3); NEUTROPHILS # (AUTO) 4.3 K/uL (1.8-7.7); NEUTROPHILS % (AUTO) 60.7 % (40.0-70.0); PLATELET COUNT (AUTO) 142 K/uL (130-430); RED BLOOD CELL COUNT(AUTO) 4.22 MIL/uL (4.2-6.2); RED CELL DISTRIBUTION WIDTH 14.2 % (9.0-15.0); WHITE BLOOD COUNT (AUTO) 7.2 K/uL (4.8-10.8)
[2019-05-08 06:42] LABS: ALBUMIN 3.1 g/dL (3.4-4.8); CREATININE 0.71 mg/dL (0.55-1.30); POTASSIUM 3.8 mmol/L (3.5-5.1); TOTAL BILIRUBIN 0.4 mg/dL (0.0-1.0)
[2019-05-08] MEDS: FAMOTIDINE 20 MG TABLET PO SCH (10:00)
[2019-05-08] MEDS: ATORVASTATIN 20 MG TABLET PO SCH (10:04)
[2019-05-08] MEDS ORDERED: HYDROmorphone 1 MG INJ. 1 MG/ML AMPUL IVP PRN (14:45)
[2019-05-08] MEDS: HYDROmorphone 2 MG/ML VIAL IVP PRN ×3 (15:18→23:42)
[2019-05-08] MEDS: CARISOPRODOL 350 MG TABLET PO PRN (20:46)
[2019-05-08] MEDS ORDERED: DIVALPROEX SODIUM 500 MG TABLET( DEPAKOTE) PO SCH (21:00)
[2019-05-09] VITALS: BP_SYST 150
[2019-05-09] MEDS: HYDROmorphone 2 MG/ML VIAL IVP PRN ×2 (03:51→07:49)
[2019-05-09] MEDS: FAMOTIDINE 20 MG TABLET PO SCH (07:47)
[2019-05-09 08:38] VITALS: BP_SYST 165
[2019-05-09] MEDS: ATORVASTATIN 20 MG TABLET PO SCH (09:00)
[2019-05-09 10:03] VITALS: BP_SYST 142
[2019-05-09] MEDS: CARISOPRODOL 350 MG TABLET PO PRN (10:38)
[2019-05-09 12:41] VITALS: BP_SYST 148
[2019-05-09 13:07] VITALS: BP_SYST 142
== END 2019-05-09 13:05 | disposition home or self-care (01) | DRG 552 ==
LOC: SED 16:54 → SMU 21:34
PROVIDERS: ADMIT Internal Medicine Hospice and Palliative Medicine; ATTEND Internal Medicine Hospice and Palliative Medicine
DX: M54.16 Radiculopathy, lumbar region (principal); Z68.41 Body mass index [BMI] 40.0-44.9, adult; I10 Essential (primary) hypertension; E66.01 Morbid (severe) obesity due to excess calories; I27.20 Pulmonary hypertension, unspecified; F32.9 Major depressive disorder, single episode, unspecified; R32 Unspecified urinary incontinence; G89.29 Other chronic pain; M47.817 Spondylosis without myelopathy or radiculopathy, lumbosacral region; K21.9 Gastro-esophageal reflux disease without esophagitis; F41.9 Anxiety disorder, unspecified; Z79.899 Other long term (current) drug therapy
CPT/HCPCS: 36415; 71250-TC; 72131; 80053; 84484; 85025; 85610-TC; 85730-TC; 93005; 96361; 96374; 96375; 96376; 97110-GP; 97112-GP; 97530-GP; 99285; J1170; J2270; J3010; J3490; J7030

== ENCOUNTER 2020-07-23 15:29 | Observation (INO) | payer OTHER, MEDICAID, SELFPAY ==
[~2020-07-23] VITALS: Ht 185.4 cm; Wt 150.6 kg
[~2020-07-23 15:29] MED LIST changes: +IBUP-1970 PO; -MELA3TAB64 PO; -PRAZ2CAP2 PO; -PRO40 PO; -QUET400T12 PO; -QUET50TA79 PO; +ROSU20TA2 PO; -SERT25TA77 PO; -SUCR1TAB78 PO; +TRAM-350 PO; -TRAZ300T11 PO
[2020-07-23 15:30] VITALS: BP_SYST 161
[2020-07-23 16:30] LABS: BILIRUBIN,URINE NEGATIVE (NEGATIVE); BLOOD, URINE NEGATIVE (NEGATIVE); CLARITY/URINE CLEAR (CLEAR); COLOR,URINE YELLOW (YELLOW); GLUCOSE,URINE NEGATIVE (NEGATIVE); KETONES,URINE TRACE (NEGATIVE); LEUKOCYTE ESTERASE ,URINE NEGATIVE (NEGATIVE); NITRITE, URINE NEGATIVE (NEGATIVE); PH,URINE 5.5 (5.0-8.0); PROTEIN URINE NEGATIVE (NEGATIVE)
[2020-07-23 16:42] LABS: BARBITURATE, URINE NEGATIVE (NEG <=200); BENZODIAZEPINE, URINE NEGATIVE (NEG <=150); CANNABINOID, URINE NEGATIVE (NEG <=50); COCAINE, URINE NEGATIVE (NEG <=150); METHAMPHETAMINES SCREEN,URINE NEGATIVE (NEG <=500); OPIATE, URINE POSITIVE (NEG <=100); PHENCYCLIDINE SCREEN,URINE NEGATIVE (NEG <=25); UR TRICYCLIC ANTIDEPRESSANTS NEGATIVE (NEG <=300); URINE AMPHETAMINE NEGATIVE (NEG <=500); URINE METHADONE NEGATIVE (NEG <=200); URINE OXYCODONE SCREEN NEGATIVE (NEG <=100); URINE PROPOXYPHENE SCREEN NEGATIVE (NEG <=300)
[2020-07-23 17:18] LABS: BASOPHILS % (AUTO) 0.6 % (0.0-2.0); EOSINOPHILS # (AUTO) 0.2 K/uL (0.0-0.4); EOSINOPHILS % (AUTO) 4.1 % (0.0-4.0); HEMATOCRIT 39.3 % (36-54); HEMOGLOBIN 13.3 g/dL (14.0-18.0); LYMPHOCYTES # (AUTO) 1.7 K/uL (1.0-5.5); LYMPHOCYTES % (AUTO) 29.1 % (20.5-51.5); MEAN CORPUSCULAR HEMOGLOBIN 31 pg (27-31); MEAN CORPUSCULAR HGB CONC 34 % (32-36); MEAN CORPUSCULAR VOLUME 92 fL (79.0-98.0); MONOCYTES # (AUTO) 0.5 K/uL (0.0-1.0); NEUTROPHILS # (AUTO) 3.3 K/uL (1.8-7.7); NEUTROPHILS % (AUTO) 57.2 % (40.0-70.0); PLATELET COUNT (AUTO) 186 K/uL (130-430); RED BLOOD CELL COUNT(AUTO) 4.26 MIL/uL (4.2-6.2); RED CELL DISTRIBUTION WIDTH 13.2 % (9.0-15.0); WHITE BLOOD COUNT (AUTO) 5.8 K/uL (4.8-10.8)
[2020-07-23 17:25] LABS: ANION GAP 5 (5-15); CALCIUM 8.2 mg/dL (8.4-11.0); CHLORIDE 106 mmol/L (98-107); CREATININE 1.02 mg/dL (0.55-1.30); GLUCOSE 102 mg/dL (70-99); POTASSIUM 3.8 mmol/L (3.5-5.1); SODIUM SERUM 141 mmol/L (136-145); UREA NITROGEN, BLOOD 25 mg/dL (8-21)
[2020-07-23 17:26] LABS: GFR AFRICAN AMERICAN 99 mL/min (>90)
[2020-07-23 17:27] LABS: PROTHROMBIN TIME 9.9 SECS (9.5-12.5)
[2020-07-23] MEDS ORDERED: fentaNYL CITRATE/PF 100 MCG/2 ML AMP IM ONE (17:30)
[2020-07-23] MEDS ORDERED: fentaNYL CITRATE/PF 100 MCG/2 ML AMP ONE (17:32)
[2020-07-23 17:34] LABS: ALANINE AMINOTRANSFERASE 43 U/L (12-78); ALBUMIN 3.8 g/dL (3.4-4.8); ASPARTATE AMINOTRANSFERASE 33 U/L (10-37); TOTAL BILIRUBIN 0.3 mg/dL (0.0-1.0)
[2020-07-23] MEDS ORDERED: DIPH-TET-PERTUS Vaccine 0.5 ML VIAL (ADACEL) I.M. ONE (17:45)
[2020-07-23] MEDS ORDERED: KETOROLAC TROMETHAMINE 30 MG VIAL IVP ONE (19:00)
[2020-07-23] MEDS ORDERED: OXYCODONE/ACETAMINOPHEN 5-325 TABLET PO ONE (19:00)
[2020-07-23] MEDS ORDERED: LORazepam 2 MG/ML VIAL IVP PRN (19:30)
[2020-07-23] MEDS ORDERED: HYDROcodone/ACETAMIN 5-325 MG TAB (NORCO/ VICODIN) PO PRN (19:30)
[2020-07-23] MEDS ORDERED: hydrALAZINE HCL 20 MG/ML VIAL IVP PRN (20:00)
[2020-07-23] MEDS ORDERED: DIVALPROEX SODIUM 500 MG TABLET( DEPAKOTE) PO SCH (21:00)
[2020-07-23 21:24] VITALS: BP_SYST 139
[2020-07-23] MEDS ORDERED: MELA3TAB69 PO (21:34)
[2020-07-23] MEDS ORDERED: FAMO40TA7 PO (21:34)
[2020-07-23] MEDS ORDERED: PRAZ2CAP PO (21:34)
[2020-07-23] MEDS ORDERED: PRO40 PO (21:34)
[2020-07-23] MEDS ORDERED: ACET1TAB23 PO (21:34)
[2020-07-23] MEDS ORDERED: TRAZ-251 PO (21:34)
[2020-07-23] MEDS ORDERED: NEU300 PO (21:34)
[2020-07-23] MEDS ORDERED: NAPR-686 PO (21:34)
[2020-07-23] MEDS ORDERED: LISI40TA13 PO (21:34)
[2020-07-23] MEDS ORDERED: MECL-225 PO (21:34)
[2020-07-23] MEDS ORDERED: LEVO175T7 PO (21:34)
[2020-07-23] MEDS ORDERED: METH-634 PO (21:34)
[2020-07-23] MEDS: NORMAL SALINE 5 ML DISP.SYRIN IVF SCH (21:47)
[2020-07-23] MEDS: MORPHINE 4 MG INJ. 4 MG/ML VIAL IVP PRN (21:48)
[2020-07-23] MEDS ORDERED: traZODone HCL 50 MG TABLET (DESYREL) PO ONE (23:30)
[2020-07-23] MEDS ORDERED: MECLIZINE HCL 25 MG TABLET (ANITVERT) PO ONE (23:30)
[2020-07-23] MEDS ORDERED: PRAZOSIN HCL 1 MG CAPSULE PO ONE (23:30)
[2020-07-23] MEDS ORDERED: MELATONIN 3 MG TABLET PO ONE (23:30)
[2020-07-23] MEDS ORDERED: GABAPENTIN 300 MG CAPSULE PO ONE (23:30)
[2020-07-23] MEDS ORDERED: FAMOTIDINE 20 MG TABLET PO ONE (23:30)
[2020-07-23] MEDS ORDERED: FAMOTIDINE 20 MG TABLET ONE (23:40)
[2020-07-23] MEDS ORDERED: traZODone HCL 50 MG TABLET (DESYREL) ONE (23:40)
[2020-07-24 00:21] VITALS: BP_SYST 120
[2020-07-24] MEDS: MORPHINE 4 MG INJ. 4 MG/ML VIAL IVP PRN ×4 (01:46→14:38)
[2020-07-24] MEDS ORDERED: traZODone HCL 50 MG TABLET (DESYREL) PO PRN (05:30)
[2020-07-24] MEDS ORDERED: methocarbamoL 500 MG TABLET PO PRN (05:30)
[2020-07-24] MEDS: NORMAL SALINE 5 ML DISP.SYRIN IVF SCH ×2 (05:41→14:47)
[2020-07-24 06:42] LABS: ANION GAP 9 (5-15); CALCIUM 7.9 mg/dL (8.4-11.0); CHLORIDE 106 mmol/L (98-107); CREATININE 0.94 mg/dL (0.55-1.30); GLUCOSE 124 mg/dL (70-99); POTASSIUM 3.5 mmol/L (3.5-5.1); SODIUM SERUM 144 mmol/L (136-145); UREA NITROGEN, BLOOD 28 mg/dL (8-21)
[2020-07-24 06:44] LABS: BASOPHILS % (AUTO) 0.7 % (0.0-2.0); EOSINOPHILS # (AUTO) 0.3 K/uL (0.0-0.4); EOSINOPHILS % (AUTO) 5.3 % (0.0-4.0); HEMATOCRIT 36.7 % (36-54); HEMOGLOBIN 12.4 g/dL (14.0-18.0); LYMPHOCYTES # (AUTO) 1.9 K/uL (1.0-5.5); MEAN CORPUSCULAR HEMOGLOBIN 31 pg (27-31); MEAN CORPUSCULAR HGB CONC 34 % (32-36); MEAN CORPUSCULAR VOLUME 93 fL (79.0-98.0); MONOCYTES # (AUTO) 0.4 K/uL (0.0-1.0); MONOCYTES % (AUTO) 8.1 % (1.7-9.3); NEUTROPHILS # (AUTO) 2.4 K/uL (1.8-7.7); NEUTROPHILS % (AUTO) 47.9 % (40.0-70.0); PLATELET COUNT (AUTO) 155 K/uL (130-430); RED BLOOD CELL COUNT(AUTO) 3.95 MIL/uL (4.2-6.2); RED CELL DISTRIBUTION WIDTH 13.3 % (9.0-15.0)
[2020-07-24 06:53] LABS: ALANINE AMINOTRANSFERASE 36 U/L (12-78); ALBUMIN 3.1 g/dL (3.4-4.8); ASPARTATE AMINOTRANSFERASE 25 U/L (10-37); TOTAL BILIRUBIN 0.2 mg/dL (0.0-1.0)
[2020-07-24] MEDS ORDERED: LEVOTHYROXINE SODIUM 0.075 MG TABLET PO ONE (07:15)
[2020-07-24] MEDS ORDERED: LEVOTHYROXINE SODIUM 0.1 MG TABLET PO ONE (07:15)
[2020-07-24] MEDS ORDERED: MELATONIN 3 MG TABLET PO PRN (07:15)
[2020-07-24 07:26] LABS: GFR AFRICAN AMERICAN 109 mL/min (>90)
[2020-07-24 07:33] LABS: THYROID STIMULATING HORMONE 10.97 uIu/mL (0.34-4.82)
[2020-07-24 08:04] VITALS: BP_SYST 141
[2020-07-24] MEDS ORDERED: lisinopriL 20 MG TABLET PO SCH (09:00)
[2020-07-24] MEDS ORDERED: ATORVASTATIN 20 MG TABLET PO SCH (09:00)
[2020-07-24] MEDS ORDERED: FAMOTIDINE 20 MG TABLET PO SCH (09:00)
[2020-07-24] MEDS ORDERED: MECLIZINE HCL 25 MG TABLET (ANITVERT) PO SCH (09:00)
[2020-07-24] MEDS ORDERED: PANTOPRAZOLE SODIUM 40 MG TAB PO SCH (09:00)
[2020-07-24 11:17] VITALS: BP_SYST 143
[2020-07-24 13:00] VITALS: BP_SYST 125; BP_SYST 133; BP_SYST 137
[2020-07-24 16:35] VITALS: BP_SYST 137
[2020-07-24] MEDS ORDERED: PRAZOSIN HCL 1 MG CAPSULE PO SCH (21:00)
[2020-07-24] MEDS ORDERED: GABAPENTIN 300 MG CAPSULE PO SCH (21:00)
[2020-07-25] MEDS ORDERED: LEVOTHYROXINE SODIUM 0.075 MG TABLET PO SCH (07:00)
[2020-07-25] MEDS ORDERED: LEVOTHYROXINE SODIUM 0.1 MG TABLET PO SCH (07:00)
== END 2020-07-24 18:40 | disposition home or self-care (01) ==
LOC: SED 15:29 → INTOOBSV 19:20 → STU 19:20
PROVIDERS: ADMIT Internal Medicine Hospice and Palliative Medicine; ATTEND Internal Medicine Hospice and Palliative Medicine
DX: S32.028A Other fracture of second lumbar vertebra, initial encounter for closed fracture (principal); Z20.822 Contact with and (suspected) exposure to COVID-19; S32.038A Other fracture of third lumbar vertebra, initial encounter for closed fracture; S93.401A Sprain of unspecified ligament of right ankle, initial encounter; S89.91XA Unspecified injury of right lower leg, initial encounter; R55 Syncope and collapse; E03.9 Hypothyroidism, unspecified; K21.9 Gastro-esophageal reflux disease without esophagitis; I27.20 Pulmonary hypertension, unspecified; M17.11 Unilateral primary osteoarthritis, right knee; M51.36 Other intervertebral disc degeneration, lumbar region; R73.9 Hyperglycemia, unspecified; E88.09 Other disorders of plasma-protein metabolism, not elsewhere classified; E44.0 Moderate protein-calorie malnutrition; E78.1 Pure hyperglyceridemia; I71.2 Thoracic aortic aneurysm, without rupture; I10 Essential (primary) hypertension; E66.01 Morbid (severe) obesity due to excess calories; E83.52 Hypercalcemia; F41.8 Other specified anxiety disorders; F43.10 Post-traumatic stress disorder, unspecified; Z79.899 Other long term (current) drug therapy; Z87.891 Personal history of nicotine dependence; Z23 Encounter for immunization; W01.10XA Fall on same level from slipping, tripping and stumbling with subsequent striking against unspecified object, initial encounter; Y93.89 Activity, other specified; Y92.89 Other specified places as the place of occurrence of the external cause
CPT/HCPCS: 36415 ×2; 70450; 71045; 72114; 72131; 73564; 73610; 76376; 80053 ×2; 80061; 80307; 81003; 82550; 84443; 84484 ×2; 85025 ×2; 85610; 85730; 87426; 90471; 90715; 93005 ×2; 93306; 93880; 96372; 96374; 96375; 96376; 99285; G0378 ×2; J1885; J2270 ×2; J3010; J8597 ×2; J7030

== ENCOUNTER 2020-08-03 10:26 | Emergency (ER) | payer OTHER, MEDICAID ==
[~2020-08-03] VITALS: Ht 185.4 cm; Wt 149.7 kg
[~2020-08-03 10:26] MED LIST changes: +ACET1TAB23 PO; +FAMO40TA7 PO; +LEVO175T7 PO; +LISI40TA13 PO; +MECL-225 PO; +MELA3TAB69 PO; +METH-634 PO; +NAPR-686 PO; +NEU300 PO; +PRAZ2CAP PO; +PRO40 PO; +TRAZ-251 PO
[2020-08-03 10:50] VITALS: BP_SYST 158
[2020-08-03] MEDS ORDERED: traMADol HCL HCL 50 MG TABLET (ULTRAM) PO ONE (11:00)
[2020-08-03] MEDS ORDERED: NAPR-688 PO (11:08)
[2020-08-03] MEDS ORDERED: TRAM50TA PO (11:08)
[2020-08-03 11:35] VITALS: BP_SYST 158
== END 2020-08-03 11:35 | disposition home or self-care (01) ==
LOC: SED 10:26
DX: S83.91XA Sprain of unspecified site of right knee, initial encounter (principal); K21.9 Gastro-esophageal reflux disease without esophagitis; Z79.899 Other long term (current) drug therapy; X50.9XXA Other and unspecified overexertion or strenuous movements or postures, initial encounter; Y93.89 Activity, other specified; Y92.89 Other specified places as the place of occurrence of the external cause; Y99.8 Other external cause status
CPT/HCPCS: 73564; 99283

== ENCOUNTER 2020-11-24 19:04 | Emergency (ER) | payer OTHER, MEDICAID ==
[~2020-11-24] VITALS: Ht 185.4 cm; Wt 150.6 kg
[~2020-11-24 19:04] MED LIST changes: +NAPR-688 PO
[2020-11-24 19:06] VITALS: BP_SYST 154
[2020-11-24 20:21] LABS: BASOPHILS % (AUTO) 0.4 % (0.0-2.0); EOSINOPHILS % (AUTO) 0.1 % (0.0-4.0); HEMATOCRIT 41.3 % (36-54); HEMOGLOBIN 13.9 g/dL (14.0-18.0); LYMPHOCYTES # (AUTO) 1.2 K/uL (1.0-5.5); LYMPHOCYTES % (AUTO) 20.2 % (20.5-51.5); MEAN CORPUSCULAR HEMOGLOBIN 32 pg (27-31); MEAN CORPUSCULAR HGB CONC 34 % (32-36); MEAN CORPUSCULAR VOLUME 94 fL (79.0-98.0); MONOCYTES # (AUTO) 0.2 K/uL (0.0-1.0); MONOCYTES % (AUTO) 3.8 % (1.7-9.3); NEUTROPHILS # (AUTO) 4.5 K/uL (1.8-7.7); NEUTROPHILS % (AUTO) 75.5 % (40.0-70.0); PLATELET COUNT (AUTO) 186 K/uL (130-430); RED BLOOD CELL COUNT(AUTO) 4.41 MIL/uL (4.2-6.2); RED CELL DISTRIBUTION WIDTH 13.8 % (9.0-15.0); WHITE BLOOD COUNT (AUTO) 5.9 K/uL (4.8-10.8)
[2020-11-24 20:40] LABS: CALCIUM 9.1 mg/dL (8.4-11.0); CREATININE 0.84 mg/dL (0.55-1.30); POTASSIUM 4.2 mmol/L (3.5-5.1)
[2020-11-24 20:46] LABS: ALBUMIN 4.3 g/dL (3.4-4.8); TOTAL BILIRUBIN 0.2 mg/dL (0.0-1.0)
[2020-11-24 21:00] LABS: PROTHROMBIN TIME 10.5 SECS (9.5-12.5)
[2020-11-24 21:56] VITALS: BP_SYST 140
== END 2020-11-24 21:56 | disposition home or self-care (01) ==
LOC: SED 19:04
DX: R07.2 Precordial pain (principal); I10 Essential (primary) hypertension; K21.9 Gastro-esophageal reflux disease without esophagitis; Z79.899 Other long term (current) drug therapy
CPT/HCPCS: 36415; 71045; 80053; 84484; 85025; 85379; 85610-TC; 85730-TC; 93005; 99285

== ENCOUNTER 2021-07-24 15:02 | Emergency (ER) | payer OTHER, MEDICAID ==
[~2021-07-24] VITALS: Ht 185.4 cm; Wt 113.4 kg
[~2021-07-24 15:02] MED LIST changes: -ACET1TAB23 PO; +ACET1TAB93 PO
[2021-07-24 15:10] VITALS: BP_SYST 157
[2021-07-24] MEDS ORDERED: ALBUTEROL SULFATE 0.083% 2.5 MG/3 ML VIAL.NEB INH ONE ×3 (15:30→16:45)
[2021-07-24] MEDS ORDERED: KETOROLAC TROMETHAMINE 30 MG VIAL IVP ONE (15:30)
[2021-07-24] MEDS ORDERED: NACL 0.9% 1,000 ML IV ONE (15:30)
[2021-07-24] MEDS ORDERED: IPRATROPIUM BROM 0.5 MG/2.5 ML VIAL.NEB (ATROVENT) INH ONE ×2 (15:30→16:45)
[2021-07-24 16:03] LABS: BASOPHILS # (AUTO) 0.2 K/uL (0.0-0.2); EOSINOPHILS # (AUTO) 0.1 K/uL (0.0-0.4); EOSINOPHILS % (AUTO) 2.8 % (0.0-4.0); HEMATOCRIT 37.7 % (36-54); HEMOGLOBIN 13.1 g/dL (14.0-18.0); LYMPHOCYTES # (AUTO) 0.8 K/uL (1.0-5.5); LYMPHOCYTES % (AUTO) 16.6 % (20.5-51.5); MEAN CORPUSCULAR HEMOGLOBIN 32 pg (27-31); MEAN CORPUSCULAR HGB CONC 35 % (32-36); MEAN CORPUSCULAR VOLUME 92 fL (79.0-98.0); MONOCYTES # (AUTO) 0.6 K/uL (0.0-1.0); MONOCYTES % (AUTO) 11.5 % (1.7-9.3); NEUTROPHILS # (AUTO) 3.1 K/uL (1.8-7.7); NEUTROPHILS % (AUTO) 64.1 % (40.0-70.0); PLATELET COUNT (AUTO) 153 K/uL (130-430); RED CELL DISTRIBUTION WIDTH 13.2 % (9.0-15.0); WHITE BLOOD COUNT (AUTO) 4.8 K/uL (4.8-10.8)
[2021-07-24 16:13] LABS: ANION GAP 9 (5-15); CALCIUM 8.3 mg/dL (8.4-11.0); CHLORIDE 102 mmol/L (98-107); CREATININE 0.99 mg/dL (0.55-1.30); GLUCOSE 101 mg/dL (70-99); POTASSIUM 3.7 mmol/L (3.5-5.1); SODIUM SERUM 138 mmol/L (136-145); UREA NITROGEN, BLOOD 17 mg/dL (8-21)
[2021-07-24 16:15] LABS: GFR AFRICAN AMERICAN 102 mL/min (>90)
[2021-07-24 16:26] LABS: ALANINE AMINOTRANSFERASE 38 U/L (12-78); ALBUMIN 3.8 g/dL (3.4-4.8); ASPARTATE AMINOTRANSFERASE 24 U/L (10-37); TOTAL BILIRUBIN 0.4 mg/dL (0.0-1.0)
[2021-07-24] MEDS ORDERED: ZIT250 PO (17:44)
[2021-07-24] MEDS ORDERED: ALBU8.5H8 INH ×2 (17:46→17:47)
[2021-07-24] MEDS ORDERED: PRED20TA PO (17:46)
[2021-07-24 17:51] LABS: BILIRUBIN,URINE NEGATIVE (NEGATIVE); BLOOD, URINE NEGATIVE (NEGATIVE); CLARITY/URINE CLEAR (CLEAR); COLOR,URINE YELLOW (YELLOW); GLUCOSE,URINE NEGATIVE (NEGATIVE); KETONES,URINE NEGATIVE (NEGATIVE); LEUKOCYTE ESTERASE ,URINE NEGATIVE (NEGATIVE); NITRITE, URINE NEGATIVE (NEGATIVE); PROTEIN URINE NEGATIVE (NEGATIVE); UROBILINOGEN,URINE 0.2 (0.2-1.0)
[2021-07-24 18:02] VITALS: BP_SYST 132
[2021-08-05] MEDS ORDERED: IRBE300T40 PO (09:23)
== END 2021-07-24 18:02 | disposition home or self-care (01) ==
LOC: SED 15:02
DX: J98.01 Acute bronchospasm (principal); R07.81 Pleurodynia; I10 Essential (primary) hypertension; E03.9 Hypothyroidism, unspecified; K21.9 Gastro-esophageal reflux disease without esophagitis; Z79.899 Other long term (current) drug therapy; Z20.822 Contact with and (suspected) exposure to COVID-19
CPT/HCPCS: 36415; 36600; 71045; 80053; 81003; 82803; 83605; 83880; 84484; 85025; 87040; 87086; 87426; 87804 ×2; 93005; 94640; 96361; 96374; 99285; J1885; J7030; J7613

== ENCOUNTER 2021-10-17 18:26 | Emergency (ER) | payer OTHER, MEDICAID ==
[~2021-10-17] VITALS: Ht 185.4 cm; Wt 154.2 kg
[~2021-10-17 18:26] MED LIST changes: +ALBU8.5H8 INH; +IRBE300T40 PO; +PRED20TA PO; +ZIT250 PO
[2021-10-17 18:40] VITALS: BP_SYST 122
--- NOTE | 2021-10-17 19:18 | NUR ---
Patient to ER bed 07 to gown for evaluation. Side rails up.
--- NOTE | 2021-10-17 19:18 | NUR ---
Report given to Alexandria SWANN
--- NOTE | 2021-10-17 19:40 | NUR ---
ED MD AT BEDSIDE . PT AMBULATED IN TO ED UTILIZING A CANE. PT WHEELED INTO ED BED WITH SD WHEELCHAIR., PT C/O PAIN IN THE LEFT SIDE OF GROIN/INGUINIAL REGION SINCE MAY. PT STATED PAIN HAS BECOME WORSE. PT ALSO STATES URINATING FEEL LIKE STRAINING. PER PT, A FREQUENT URGE TO URINATE WITH LITTLE URINE OUTPUT. PT PEDNING URINE. PROVIDED PT WITH COLD WATER AND URINAL. PT TAKEN TO CT SCAN
--- NOTE | 2021-10-17 19:48 | NUR ---
PT RETURNED FROM CT. TOLERATED WELL. PT HAS CAST ON RIGHT FOOT. PT FOOT GOT ROLLED OVER ON, SCREWS PLACED IN JULY. PENDING REMOVAL IN . PT TRYING TO USE URINAL NOW.
[2021-10-17 20:09] LABS: BASOPHILS % (AUTO) 0.7 % (0.0-2.0); EOSINOPHILS # (AUTO) 0.3 K/uL (0.0-0.4); EOSINOPHILS % (AUTO) 4.5 % (0.0-4.0); HEMATOCRIT 37.9 % (36-54); LYMPHOCYTES % (AUTO) 34.6 % (20.5-51.5); MEAN CORPUSCULAR HEMOGLOBIN 31 pg (27-31); MEAN CORPUSCULAR HGB CONC 34 % (32-36); MEAN CORPUSCULAR VOLUME 91 fL (79.0-98.0); MONOCYTES # (AUTO) 0.7 K/uL (0.0-1.0); MONOCYTES % (AUTO) 11.7 % (1.7-9.3); NEUTROPHILS # (AUTO) 2.7 K/uL (1.8-7.7); NEUTROPHILS % (AUTO) 48.5 % (40.0-70.0); PLATELET COUNT (AUTO) 190 K/uL (130-430); RED BLOOD CELL COUNT(AUTO) 4.18 MIL/uL (4.2-6.2); RED CELL DISTRIBUTION WIDTH 13.7 % (9.0-15.0); WHITE BLOOD COUNT (AUTO) 5.6 K/uL (4.8-10.8)
[2021-10-17 20:11] LABS: BILIRUBIN,URINE NEGATIVE (NEGATIVE); CLARITY/URINE CLEAR (CLEAR); COLOR,URINE YELLOW (YELLOW); GLUCOSE,URINE NEGATIVE (NEGATIVE); KETONES,URINE TRACE (NEGATIVE); LEUKOCYTE ESTERASE ,URINE NEGATIVE (NEGATIVE); NITRITE, URINE NEGATIVE (NEGATIVE); PROTEIN URINE TRACE (NEGATIVE)
[2021-10-17 20:23] LABS: BLOOD, URINE TRACE (NEGATIVE)
[2021-10-17 20:24] LABS: BACTERIA,URINE FEW /HPF (None Seen); CALCIUM OXALATE CRYSTALS,UR 0-10 /HPF (None Seen); MUCUS,URINE None Seen /LPF (None Seen); RBC,URINE 0-3 /HPF (0-3); WBC,URINE 0-3 /HPF (0-3)
[2021-10-17 20:32] LABS: ANION GAP 10 (5-15); CALCIUM 9.4 mg/dL (8.4-11.0); CHLORIDE 104 mmol/L (98-107); GFR AFRICAN AMERICAN 101 mL/min (>90); GLUCOSE 112 mg/dL (70-99); POTASSIUM 3.8 mmol/L (3.5-5.1); SODIUM SERUM 141 mmol/L (136-145); UREA NITROGEN, BLOOD 20 mg/dL (8-21)
[2021-10-17 20:38] LABS: ALANINE AMINOTRANSFERASE 66 U/L (12-78); ALBUMIN 3.8 g/dL (3.4-4.8); AMYLASE 25 U/L (0-100); ASPARTATE AMINOTRANSFERASE 35 U/L (10-37); LIPASE 85 U/L (73-393); TOTAL BILIRUBIN 0.1 mg/dL (0.0-1.0)
[2021-10-17 20:39] LABS: C-REACTIVE PROTEIN QUANT < 0.2 mg/dL (0-0.5)
[2021-10-17] MEDS ORDERED: HYDR-3921 PO (21:23)
[2021-10-17] MEDS ORDERED: IBUP-1971 PO (21:23)
[2021-10-17] MEDS ORDERED: HYDROcodone/ACETAMIN 10-325 MG TAB PO ONE (21:30)
[2021-10-17] MEDS ORDERED: KETOROLAC TROMETHAMINE 60 MG/2 ML VIAL IM ONE (21:30)
[2021-10-17 21:54] VITALS: BP_SYST 129
--- NOTE | 2021-10-17 21:56 | NUR ---
PT CLEARED FOR DC BY MD PT ADVISED TO FOLLOW UP WITH PCP PT ADVISED TO RETURN TO THE ED IF S/S WORSEN PT VERBALIZED UNDERSTANDING OF DC TEACHING PT AMBULATORY WITH CANE PT VSS
== END 2021-10-17 21:55 | disposition home or self-care (01) ==
LOC: SED 18:26
DX: R10.32 Left lower quadrant pain (principal); M54.50 Low back pain, unspecified; I10 Essential (primary) hypertension; K21.9 Gastro-esophageal reflux disease without esophagitis; Z79.899 Other long term (current) drug therapy
CPT/HCPCS: 99284; 74176; 80053; 81000; 82150; 83690; 85025; 86140; 36415; 76376; 96372; 83605; J1885

== ENCOUNTER 2021-11-11 19:07 | Emergency (ER) | payer OTHER, MEDICAID ==
[~2021-11-11] VITALS: Ht 185.4 cm; Wt 163.3 kg
[~2021-11-11 19:07] MED LIST changes: +HYDR-3921 PO; +IBUP-1971 PO
[2021-11-11 19:27] VITALS: BP_SYST 140
--- NOTE | 2021-11-11 19:36 | NUR ---
PATIENT ACCOMPANIED BY SON COMPLAINING OF WORSENING ABDOMINAL PAIN. PATIENT REPORTS HAVING AN INGUINAL HERNIA AND ABDOMINAL HERNIA. PAIN 10/05. VSS HX OF COPD Patient triaged and placed in waiting room. VSS and patient appears in no acute distress at this time. Accompanied by SON, awaiting available bed, and MD notified of need for MSE.
--- NOTE | 2021-11-11 19:51 | NUR ---
ER at bedside examining patient.
--- NOTE | 2021-11-11 19:51 | NUR ---
Patient to ER bed 4 to gown for evaluation. Side rails up. Report given to YARA SWANN(SHERRY).
[2021-11-11 20:23] LABS: BASOPHILS # (AUTO) 0.1 K/uL (0.0-0.2); BASOPHILS % (AUTO) 2.2 % (0.0-2.0); EOSINOPHILS # (AUTO) 0.3 K/uL (0.0-0.4); EOSINOPHILS % (AUTO) 6.1 % (0.0-4.0); HEMATOCRIT 38.3 % (36-54); LYMPHOCYTES # (AUTO) 1.4 K/uL (1.0-5.5); LYMPHOCYTES % (AUTO) 25.4 % (20.5-51.5); MEAN CORPUSCULAR VOLUME 91 fL (79.0-98.0); MONOCYTES # (AUTO) 0.5 K/uL (0.0-1.0); MONOCYTES % (AUTO) 9.8 % (1.7-9.3); NEUTROPHILS # (AUTO) 3.1 K/uL (1.8-7.7); NEUTROPHILS % (AUTO) 56.5 % (40.0-70.0); PLATELET COUNT (AUTO) 195 K/uL (130-430); RED BLOOD CELL COUNT(AUTO) 4.22 MIL/uL (4.2-6.2); RED CELL DISTRIBUTION WIDTH 13.4 % (9.0-15.0); WHITE BLOOD COUNT (AUTO) 5.5 K/uL (4.8-10.8)
[2021-11-11 20:34] LABS: ANION GAP 6 (5-15); CALCIUM 8.8 mg/dL (8.4-11.0); CHLORIDE 103 mmol/L (98-107); CREATININE 1.11 mg/dL (0.55-1.30); GLUCOSE 116 mg/dL (70-99); SODIUM SERUM 139 mmol/L (136-145); UREA NITROGEN, BLOOD 25 mg/dL (8-21)
[2021-11-11 20:38] LABS: ALANINE AMINOTRANSFERASE 58 U/L (12-78); ALBUMIN 3.6 g/dL (3.4-4.8); AMYLASE 34 U/L (0-100); ASPARTATE AMINOTRANSFERASE 26 U/L (10-37); LACTATE DEHYDROGENASE 143 U/L (85-227); LIPASE 115 U/L (73-393); TOTAL BILIRUBIN 0.2 mg/dL (0.0-1.0)
[2021-11-11 20:39] LABS: C-REACTIVE PROTEIN QUANT < 0.2 mg/dL (0-0.5); GFR AFRICAN AMERICAN 90 mL/min (>90)
--- NOTE | 2021-11-11 21:05 | NUR ---
UA collected and sent to lab.
[2021-11-11] MEDS ORDERED: HYDR-3921 PO (21:38)
[2021-11-11] MEDS ORDERED: IBUP-1971 PO (21:38)
[2021-11-11 21:43] LABS: BILIRUBIN,URINE NEGATIVE (NEGATIVE); CLARITY/URINE CLEAR (CLEAR); COLOR,URINE YELLOW (YELLOW); GLUCOSE,URINE NEGATIVE (NEGATIVE); KETONES,URINE NEGATIVE (NEGATIVE); LEUKOCYTE ESTERASE ,URINE NEGATIVE (NEGATIVE); NITRITE, URINE NEGATIVE (NEGATIVE); PROTEIN URINE NEGATIVE (NEGATIVE); UROBILINOGEN,URINE 0.2 (0.2-1.0)
[2021-11-11 21:51] LABS: BLOOD, URINE TRACE (NEGATIVE)
[2021-11-11 21:52] LABS: BACTERIA,URINE None Seen /HPF (None Seen); MUCUS,URINE None Seen /LPF (None Seen); RBC,URINE 0-3 /HPF (0-3); WBC,URINE 0-3 /HPF (0-3)
[2021-11-11 22:10] VITALS: BP_SYST 121
--- NOTE | 2021-11-11 22:20 | NUR ---
Patient given written and verbal discharge instructions and verbalizes understanding. ER MD Lazo discussed with patient the results and treatment provided. Patient in stable condition. ID arm band removed. Rx of [place] and Ibuprofen sent to pharmacy of choice. Patient educated on pain management and to follow up with PMD. Opportunity for questions provided and answered. Medication side effect fact sheet provided.
== END 2021-11-11 22:10 | disposition home or self-care (01) ==
LOC: SED 19:07
DX: R10.32 Left lower quadrant pain (principal); K21.9 Gastro-esophageal reflux disease without esophagitis; I10 Essential (primary) hypertension; Z79.899 Other long term (current) drug therapy
CPT/HCPCS: 36415; 76376; 80053; 81000; 82150; 83605; 83615; 83690; 84484; 85025; 86140; 99284